=== PATIENT | female | born 1995 | race Caucasian/White ===

== ENCOUNTER 2020-03-05 11:21 | Emergency (ER) | payer OTHER, BC, SELFPAY ==
[2020-03-05 11:23] VITALS: BP 137/86; PULSE 114; RESP 20; TEMP 36.9; O2SAT 100; BMI 31.0
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
--- NOTE | 2020-03-05 12:32 | NURSING ---
NO OLD EKGS
[2020-03-05] MEDS: 0.9% Normal Saline 1,000 ML 999 ML IV (12:33)
[2020-03-05 14:11] VITALS: BP 131/74; PULSE 101; RESP 20; O2SAT 100
[2020-03-05 14:12] VITALS: BP 131/70; PULSE 101; RESP 20; O2SAT 100
== END 2020-03-05 14:12 | disposition home or self-care (01) ==
PROVIDERS: Emergency Provider Physician Assistant Medical
DX: T75.4XXA Electrocution, initial encounter (principal); R00.2 Palpitations; M79.603 Pain in arm, unspecified; W86.1XXA Exposure to industrial wiring, appliances and electrical machinery, initial encounter; Y93.9 Activity, unspecified; Y92.511 Restaurant or cafe as the place of occurrence of the external cause; Y99.0 Civilian activity done for income or pay; F17.200 Nicotine dependence, unspecified, uncomplicated
CPT/HCPCS: 93005; 96360; 99285; J7030; A4216